=== PATIENT | female | born 1955 | race Caucasian/White ===

== ENCOUNTER 2017-04-11 11:37 | Emergency (ER) | payer BC ==
[2017-04-11 12:00] VITALS: BP 123/52
[2017-04-11] MEDS ORDERED: Diphtheria/Tetanus Toxoids,Adult (Td) 0.5 ML SDV IM ONE (12:01)
--- NOTE | 2017-04-11 12:08 | EDM.PDOC ---
ED HPI GENERAL MEDICAL PROBLEM - General Time Seen by Provider: 04/11/17 11:45 Source of Information: Reports: Patient History Limitations: Reports: No Limitations - History of Present Illness INITIAL COMMENTS - FREE TEXT/NARRATIVE: According to patient [place] and she is not sure, if it was a sharp piece of wood or a piece of metal hit her left thigh and sustained a laceration. There was bleeding form the laceration. Applied pressure over the wound with towel and she is here in the emergency room. No weakness in the left lower extremity. No tingling or numbness. Presently not actively bleeding. Pt claims her last tetanus was more than 10 years ago. No other complaints. Treatments [employer]: Reports: Acetaminophen - Related Data Allergies Allergy/AdvReac Type Severity Reaction Status Date / Time No Known Allergies Allergy Verified 04/11/17 11:55 Home Meds: Home Meds Alendronate [Fosamax] 10 mg PO DAILY 04/11/17 [History] Calcium Carbonate [Calcium] 1 tab PO DAILY 04/11/17 [History] Loratadine [Claritin] 1 tab PO DAILY 04/11/17 [History] Multivit with Calcium,Iron,Min [Essential Daily] 1 tab PO DAILY 04/11/17 [ History] ED ROS GENERAL - Review of Systems Review Of Systems: See Below Constitutional: Denies: Fever, Chills, Night Sweats, Diaphoresis HEENT: Denies: Sinus Problem, Throat Pain Respiratory: Denies: Cough, Sputum Cardiovascular: Denies: Chest Pain, Lightheadedness, Syncope GI/Abdominal: Denies: Nausea, Vomiting : Denies: Dysuria, Flank Pain Musculoskeletal: Denies: Joint Pain, Joint Swelling Skin: Denies: Pruritis, Rash, Erythema ED EXAM, GENERAL - Physical Exam Exam: See Below Exam Limited By: No Limitations General Appearance: Alert, WD/WN, No Apparent Distress Eye Exam: Bilateral Eye: EOMI, PERRL Ears: Normal External Exam, Normal Canal, Hearing Grossly Normal, Normal TMs Nose: Normal Inspection, Normal Mucosa, No Blood Throat/Mouth: Normal Inspection, Normal Lips, Normal Teeth, Normal Gums, Normal Oropharynx, Normal Voice, No Airway Compromise Head: Atraumatic, Normocephalic Neck: Normal Inspection, Supple, Non-Tender, Full Range of Motion Respiratory/Chest: No Respiratory Distress, Lungs Clear, Normal Breath Sounds, No Accessory Muscle Use, Chest Non-Tender Cardiovascular: Normal Peripheral Pulses, Regular Rate, Rhythm, No Edema, No Gallop, No JVD, No Murmur, No Rub Back Exam: Normal Inspection, Full Range of Motion, NT Extremities: Other (Left thigh: There is a 7 cm long horizontal lacertion over the left thigh. the wound is gapping and there is subcutaneous tissue gapping throguh the wound. the wound was explored under anesthesia. the wound does not extend into fascia or muscle plane. presently minimal bleeding. Normal neurovascular exam distal to the laceration.) Neurological: Alert, Oriented, CN II-XII Intact, Normal Cognition, Normal Gait, Normal Reflexes, No Motor/Sensory Deficits ED GENERAL MEDICAL PROCEDURES - Laceration/Wound Repair Left Thigh Lac/wound length in cm: 7 Appearance: Linear Distal NVT: Neuro & Vascular Intact Local Anesthesia - Lidocaine (Xylocaine): 1% With EPI Local Anesthetic Volume: 4cc Skin Prep: Providone-Iodine (Betadine) Saline irrigation (cc's): 50 Exploration/Debridement/Repair: Wound Explored Closed with: Sutures Suture Size: 4-0 # of Sutures: 8 Suture Type: Other (ethilon) Suture Size: other (5-O) # of Sutures: 5 Repaired with: Vicryl Sterile Dressing Applied: Provider Tetanus Status Addressed: Other (received) Complications: No Course - Vital Signs Text/Narrative:: Pt has a deep 7 cm laceration over the left thigh. It is only subcutaneous deep. Neuromuscular exam is normal in the distal part of let lower extremity. The wound was closed under aseptic precautions. Wound care discussed and also wound precautions discussed. As pt is not upto date on tetanus, received TDAp today. I have empirically covered her with Augmentin for 10 days. Advised to followup with PCP when back home. Suture removal in 10 days. Last Recorded V/S: Last Vital Signs Temp 97.8 F 04/11/17 11:59 Pulse 67 04/11/17 11:59 Resp 16 04/11/17 11:59 BP 123/52 L 04/11/17 11:59 Pulse Ox 100 04/11/17 11:59 - Orders/Labs/Meds Orders: Active Orders 24 hr Category Date Time Status Vaccines to be Administered [RC] PER UNIT ROUTINE Care 04/11/17 12:01 Ordered Meds: Medications Discontinued Medications Generic Name Dose Route Start Last Admin Trade Name He PRN Reason Stop Dose Admin Tetanus/Diphtheria Toxoids 0.5 ml 04/11/17 12:01 Tenivac IM 04/11/17 12:02 .ONCE ONE Departure - Departure Time of Disposition: 13:00 Disposition: Home, Self-Care 01 Condition: Fair Clinical Impression: Thigh laceration - Discharge Information - Problem List & Annotations (1) Thigh laceration SNOMED Code(s): 341952217 Code(s): S71.119A - LACERATION WITHOUT FOREIGN BODY, UNSP THIGH, INIT ENCNTR Status: Acute - Problem List Review Problem List Initiated/Reviewed/Updated: Yes - My Orders Last 24 Hours: My Active Orders 04/11/17 12:01 Vaccines to be Administered [RC] PER UNIT ROUTINE - Assessment/Plan Last 24 Hours: My Active Orders 04/11/17 12:01 Vaccines to be Administered [RC] PER UNIT ROUTINE Assessment:: Left thigh laceration Plan: Pt has a deep 7 cm laceration over the left thigh. It is only subcutaneous deep. Neuromuscular exam is normal in the distal part of let lower extremity. The wound was closed under aseptic precautions. Wound care discussed and also wound precautions discussed. As pt is not upto date on tetanus, received TDAp today. I have empirically covered her with Augmentin for 10 days. Advised to followup with PCP when back home. Suture removal in 10 days.
[2017-04-11] MEDS ORDERED: Lidocaine 1% 20 ML MDV ONE (12:10)
[2017-04-11] MEDS ORDERED: Diphtheria/Tetanus Toxoids,Adult (Td) 0.5 ML SDV ONE (12:15)
[2017-04-11] MEDS ORDERED: Acetaminophen/HYDROcodone 325-5 MG Tab ONE (12:45)
[2017-04-11] MEDS ORDERED: Amoxicillin/Clavulanate K 875-125 MG Tab ONE (12:45)
== END 2017-04-11 12:33 | disposition home or self-care (01) ==
LOC: LB.ED 11:37
DX: S71.112A Laceration without foreign body, left thigh, initial encounter (principal); Z23 Encounter for immunization; W45.8XXA Other foreign body or object entering through skin, initial encounter; Z79.899 Other long term (current) drug therapy
CPT/HCPCS: 12002; 90471; 90714; 99282; A9270